=== PATIENT | male | born 1940 | race Caucasian/White ===

== ENCOUNTER 2019-05-06 09:09 | Inpatient (IN) | payer MEDICARE, BC ==
[~2019-05-06] VITALS: Ht 162.6 cm; Wt 85.2 kg
[~2019-05-06 09:09] MED LIST: HEPARIN SODIUM 5,000 UNIT in IV RINGERS,LACTATED 500ML 500 ML IRR ONE; HYDROmorphone 2 MG/ML VIAL IV PRN; LIDOCAINE 1% PF 2 ML VIAL. ID PRN; ONDANSETRON PF 4 MG/2 ML VIAL. IV PRN; PROCHLORPERAZINE 10 MG/2 ML VIAL. IV PRN; fentaNYL PF VIAL 100 MCG/2 ML VIAL IV PRN
[2019-05-06] MEDS ORDERED: SIMV80TA17 PO (09:48)
[2019-05-06] MEDS ORDERED: METF500T16 PO (09:48)
[2019-05-06] MEDS ORDERED: OMEP20CA16 PO (09:48)
[2019-05-06] MEDS ORDERED: ASPI325T8 PO (09:48)
[2019-05-06] MEDS ORDERED: MULT-245 PO (09:48)
[2019-05-06] MEDS ORDERED: METO25TA2 PO (09:48)
[2019-05-06] MEDS ORDERED: NIFE60TA41 PO (09:48)
[2019-05-06] MEDS ORDERED: CLOP75TA PO (09:48)
[2019-05-06] MEDS ORDERED: LOSA100T14 PO (09:48)
[2019-05-06] MEDS ORDERED: INSULIN LISPRO 100 UNIT/ML 3ML VIAL for OP,RR ONLY. SQ PRN (10:15)
[2019-05-06] MEDS: IV RINGERS,LACTATED 1000ML 1,000 ML IV SCH ×2 (10:16→15:10)
[2019-05-06 10:23] LABS: BASO # 0.1 x10^3/uL (0.0-0.2); BASO % 1 % (0-3); EOS # 0.2 x10^3/uL (0.0-0.7); EOS % 2 % (0-3); HEMATOCRIT 39.1 % (39.0-53.0); HEMOGLOBIN 13.2 g/dL (13.0-17.5); LYMPH # 2.3 x10^3/uL (1.0-4.8); LYMPH % 27 % (24-48); MEAN CORPUSCULAR HEMOGLOBIN 30 pg (25-35); MEAN CORPUSCULAR HGB CONC 34 g/dL (31-37); MEAN CORPUSCULAR VOLUME 88 fL (79-100); MONO # 0.6 x10^3/uL (0.0-1.1); MONO % 8 % (0-9); NEUT # 5.4 x10^3/uL (1.8-7.7); NEUT % 63 % (31-73); PLATELET COUNT 267 x10^3/uL (140-400); RED BLOOD COUNT 4.44 x10^6/uL (4.30-5.70); RED CELL DISTRIBUTION WIDTH 14.3 % (11.5-14.5); WHITE BLOOD COUNT 8.5 x10^3/uL (4.0-11.0)
[2019-05-06 11:04] LABS: CALCIUM 7.9 mg/dL (8.5-10.1); GFR 72.5; POTASSIUM 4.3 mmol/L (3.5-5.1)
[2019-05-06] MEDS ORDERED: PROTAMINE 50 MG/5 ML VIAL. IV ONE ×2 (11:35→14:13)
[2019-05-06] MEDS ORDERED: SURGICEL FIBRILLAR 1X2 EACH. ONE ×3 (11:35→14:29)
[2019-05-06] MEDS ORDERED: LIDOCAINE 1% Multi-Dose 20 ML VIAL. ONE ×2 (11:35→13:13)
[2019-05-06] MEDS ORDERED: MIDAZOLAM HCL/PF 2 MG/2 ML VIAL. ONE ×2 (12:08→12:41)
[2019-05-06] MEDS ORDERED: ROPIVacaine 0.5% PF 20 ML VIAL. ONE (12:08)
[2019-05-06] MEDS: IV NORMAL SALINE 1000ML BAG 1,000 ML IV SCH (12:44)
[2019-05-06] MEDS ORDERED: MORPHINE SULFATE 2 MG/ML VIAL. IV PRN (12:45)
[2019-05-06] MEDS ORDERED: 0.9 % SODIUM CHLORIDE 10 ML DISP.SYRIN. IV PRN (12:45)
[2019-05-06] MEDS ORDERED: hydrALAZINE 20 MG/ML VIAL. IVP PRN (12:45)
[2019-05-06] MEDS ORDERED: ONDANSETRON PF 4 MG/2 ML VIAL. IVP PRN (12:45)
[2019-05-06] MEDS ORDERED: HYDROcodone/APAP 5/325MG 1 TAB TABLET PO PRN ×2 (12:45)
[2019-05-06] MEDS ORDERED: LABETALOL 20 MG/4 ML DISP.SYRIN. IVP PRN (12:45)
[2019-05-06] MEDS ORDERED: HEPARIN for IV BOLUS 10,000 UNIT/10 ML VIAL. ONE (13:03)
[2019-05-06] MEDS ORDERED: fentaNYL PF VIAL 100 MCG/2 ML VIAL ONE ×3 (13:32→14:33)
[2019-05-06] MEDS ORDERED: ESMOLOL 100 MG/10 ML VIAL. IVP ONE (14:10)
[2019-05-06] MEDS ORDERED: METOPROLOL TARTRATE 5 MG/5 ML VIAL. IVP ONE (14:27)
--- NOTE | 2019-05-06 14:52 | PDOC ---
BRIEF OPERATIVE NOTE Date: May 06, 2019 Pre-Op Diagnosis Left carotid stenosis Post-Op Diagnosis same Procedure Performed left carotid endarterectomy Surgeon Dr. Laguna Tank Calibrator Karoline Pearson NP Anesthesia Type: Regional Blood Loss 50cc Specimens Obtained discarded Findings greater than 80% Complications none Operative Note see dictated note KAROLINE PEASRON APRN May 06, 2019 14:52
[2019-05-06] MEDS: LOSARTAN POTASSIUM 50 MG TABLET. PO SCH ×2 (15:00→16:45)
[2019-05-06] MEDS: METOPROLOL SUCC 24HR ER 25 MG TAB.ER.24H. PO SCH ×2 (15:00→16:44)
[2019-05-06] MEDS: MORPHINE SULFATE 2 MG/ML VIAL. IV PRN ×2 (15:11→15:48)
[2019-05-06 16:15] VITALS: BP 130/62
[2019-05-06] MEDS: PANTOPRAZOLE 40 MG TABLET.DR. PO SCH ×2 (16:30→16:46)
[2019-05-06] MEDS: ACETAMINOPHEN 325 MG TABLET. PO SCH ×2 (16:43→22:05)
[2019-05-06] MEDS: metFORMIN 500 MG TABLET PO SCH (16:45)
[2019-05-06] MEDS ORDERED: LORazepam 0.5 MG TABLET PO PRN (17:45)
[2019-05-06] MEDS ORDERED: DOCUSATE SODIUM 100 MG CAPSULE. PO PRN (17:45)
[2019-05-06] MEDS ORDERED: ALBUTEROL SULFATE 2.5 MG/3 ML NEBU. NEB PRN (17:45)
[2019-05-06] MEDS ORDERED: guaiFENesin ORAL 200 MG/10 ML LIQUID. PO PRN (17:45)
[2019-05-06] MEDS ORDERED: ONDANSETRON PF 4 MG/2 ML VIAL. IV PRN (17:45)
[2019-05-06] MEDS ORDERED: ACETAMINOPHEN 325 MG TABLET. PO PRN (17:45)
[2019-05-06 19:09] VITALS: BP 113/56
--- NOTE | 2019-05-06 19:35 | OP ---
DATE OF SURGERY: 05/06/2019 SURGEON: Brigid Laguna MD TOUR MANAGER: Nicolle Black, nurse practitioner. PREOPERATIVE DIAGNOSIS: Severe greater than 70% stenosis of the left internal carotid artery, which is asymptomatic. POSTOPERATIVE DIAGNOSIS: Severe greater than 80% stenosis of the left internal carotid artery at the bulb and proximal segment secondary to severe atherosclerotic disease and chronic thrombus. OPERATION PERFORMED: Left carotid endarterectomy using the eversion endarterectomy technique. ANESTHESIA USED: Monitored sedation with a left neck cervical block. INDICATIONS: The patient is a 78-year-old male who has been found to have severe left internal carotid artery stenosis by duplex scan done at the [facility]. He has been asymptomatic with no stroke symptoms and no strokes in the past. He was seen in the office by Dr. Irene and recommendations were made for a left carotid endarterectomy to help prevent future strokes. Informed consent was obtained including the risks of bleeding, infection, intraoperative or postoperative stroke, nerve damage, and possible recurrent carotid arterial disease in the future. BLOOD LOSS: 50 mL. DETAILS OF THE OPERATION: The patient was brought to the operating room and placed on table in supine position. He received monitored sedation in the left neck cervical block by Anesthesia. We positioned him in the normal fashion to expose his left chest and neck. His left chest and neck were prepped and draped by normal sterile fashion. I tested the skin with pickups prior to starting, and he did have some pain when squeezing his skin. Therefore, I supplemented throughout the case with 1% lidocaine. We made a longitudinal incision in the left neck just anterior to the sternocleidomastoid muscle. The subcutaneous tissue was dissected down with electrocautery and we divided the platysma muscle with electrocautery. We continued dissection down to the sternocleidomastoid muscle, which was mobilized laterally down to the area of the jugular vein. The jugular vein was dissected out medially and medial to the vessel we identified the common carotid artery. The common carotid artery was soft. We heparinized with 7000 units of heparin. We dissected out the proximal common carotid artery, encircled it with an umbilical tape and loose Rumel tourniquet. We continued dissection proximally up into the carotid bulb. He did have a very high bifurcation. There was a crossing nerve, which was likely a large and cervicalis nerve, which we did preserve throughout the case. We dissected out the carotid bulb and external carotid artery. We circled the external carotid artery with a vessel loop. We then test clamped the patient. We clamped the proximal common carotid artery and external carotid artery. He remained neurologically intact, speaking, answering questions, and squeezing his right hand throughout the test clamp time. We then dissected the internal carotid artery proximal within the neck, we identified the hypoglossal nerve and preserved it throughout the case. The carotid bulb and proximal internal carotid artery were very hard and calcified, but the mid internal carotid artery and distal segment were very soft. We dissected this area out circumferentially and placed a spring bulldog across the distal internal carotid artery. We had the vessel completely dissected out, we ensured that he was neurologically intact. We then transected the proximal internal carotid artery at the bulb in an angled fashion spatulating the medial aspect of the internal carotid artery and the anterior surface of the common carotid artery. There was dense plaque and old thrombus within the lumen of the bulb and internal carotid artery, which was at least 80% stenotic. We performed an eversion endarterectomy of the internal carotid artery, removing the plaque up to healthy distal segment with no residual significant plaque remaining. All pieces of debris were removed off the endarterectomized vessel. We irrigated with copious amounts of heparinized saline. We then performed an eversion endarterectomy of the common carotid artery, starting with the external carotid artery, removing dense plaque and then everting to the proximal common carotid artery above the clamp endarterectomizing the vessel, we transected it proximally and the plaque. There was no residual significant plaque in the common carotid artery, it was widely patent. We irrigated with heparinized saline. We ensured all pieces of debris were removed off the endarterectomized open carotid artery. We then performed an anastomosis between the internal carotid artery and the common carotid artery with running 6-0 Prolene suture. Prior to finishing this anastomosis, we backbled the internal carotid artery and reclamped. We removed the clamp off the common carotid artery and there was good pulsatile inflow through the vessel and there was good backbleeding from the external carotid artery. We irrigated the open vessel with copious amounts of heparinized saline and then finished our anastomosis. We first restored blood flow to the external carotid artery and then we restored after several heartbeats to the internal carotid artery. There was a strong pulse within the internal carotid artery and there was strong dopplerable flow within the distal internal carotid artery and external carotid artery. We irrigated with copious amounts of antibiotic solution. There was an area of bleeding on the anterior surface of the anastomosis and the posterior surface of the anastomosis, which was repaired with 7-0 Prolene suture. The entire wound bed was very oozy with blood, likely from his aspirin and Plavix; therefore, we did end up reversing with a total of 30 mg of protamine. After the protamine exploring the wound using clips and electrocautery and Fibrillar at the end it was very dry with no significant bleeding. Fibrillar was left around the vessels. A PAUL flat drain was left in the wound through a separate lower neck incision. When it was nice and dry, we closed the platysma and subcutaneous tissue level with running 2-0 Vicryl suture and we closed the skin with running 4-0 Vicryl subcuticular suture. Dermabond was left on the incision and a drain sponge around the drain. He tolerated the surgery with no immediate complications. He was speaking, answering questions, and squeezing his right hand at the end of the case. Nicolle Black was scrubbed throughout the entire case helping with the exposure of the carotid artery, endarterectomy, and closure. BRIGID LAGUNA MD DR: ELIZABETH/adele JOB#: [id number] / [id number]
[2019-05-06] MEDS ORDERED: SIMVASTATIN 40 MG TABLET. PO SCH (21:00)
--- NOTE | 2019-05-06 23:29 | PDOC1 ---
History and Physical Date of Admission Date of Admission 05/06/2019 Identification/Chief Complaint Chief Complaint I had surgery History of Present Illness History of Present Illness Patient is a 78 year old male with past medical history of hypertension, dyslpidemia who came to the hospital today for left carotid endarterectomy, The patient at the time of my note is still lying in bed in no apparent distress, there are surgical dressings in place, he denies pain at the time of my note. Patient denies chest pain isidro palpitations no stroke like symtpoms no excess weathers at the site of his surgery, he denies headache no chest pain or palpitaiton, Plan of care discussed in detail and no questions were voiced during my encounter. Past Medical History Cardiovascular: CAD, HTN GI: GERD Endocrine: Diabetes Current Medications Current Medications Current Medications Medications (Trade) Dose Ordered Sig/Adolfo Start Time Stop Time Status Last Admin Dose Admin Acetaminophen (Tylenol) 650 mg PRN Q4HRS PRN 05/06/19 17:45 Acetaminophen/ Hydrocodone Bitart (Lortab 5/325) 2 tab PRN Q4HRS PRN 05/06/19 12:45 Albuterol Sulfate (Ventolin Neb Soln) 2.5 mg PRN Q4HRS PRN 05/06/19 17:45 Aspirin (Kassidy Aspirin) 325 mg DAILY 05/07/19 09:00 Cefazolin Sodium 1 gm/Sodium Chloride 500 ml @ 500 mls/hr 1X ONCE 05/06/19 06:00 05/06/19 06:59 DC 05/06/19 13:08 Cefazolin Sodium/ Dextrose 50 ml @ 100 mls/hr 1X PREOP PRN 05/06/19 06:00 05/06/19 18:00 DC 05/06/19 12:50 100 MLS/HR Cellulose (Surgicel Fibrillar 1x2) 1 each STK-MED ONCE 05/06/19 14:29 05/06/19 14:30 DC 05/06/19 14:30 1 EACH Clopidogrel Bisulfate (Plavix) 75 mg DAILY 05/07/19 09:00 Docusate Sodium (Colace) 100 mg PRN BID PRN 05/06/19 17:45 Esmolol HCl (Brevibloc) 100 mg STK-MED ONCE 05/06/19 14:10 05/06/19 14:10 DC Fentanyl Citrate (Fentanyl 2ml Vial) 100 mcg STK-MED ONCE 05/06/19 14:33 05/06/19 14:33 DC Guaifenesin (Robitussin) 200 mg PRN Q4HRS PRN 05/06/19 17:45 Heparin Sodium (Porcine) (Heparin Sodium) 10,000 unit STK-MED ONCE 05/06/19 13:03 05/06/19 13:03 DC Heparin Sodium (Porcine) 5000 unit/Ringer's Solution 505 ml @ 505 mls/hr 1X ONCE 05/06/19 06:00 05/06/19 06:59 DC 05/06/19 13:08 Hydralazine HCl (Apresoline Inj) 5 mg PRN Q2HRS PRN 05/06/19 12:45 Hydromorphone HCl (Dilaudid) 0.5 mg PRN Q10MIN PRN 05/06/19 07:00 05/06/19 20:00 DC Insulin Human Lispro (HumaLOG VIAL for OP,RR ONLY) 0-10 units PRN Q1HR PRN 05/06/19 10:15 05/06/19 17:06 DC 05/06/19 10:28 2 UNIT Labetalol HCl (Normodyne Iv Push) 10 mg PRN Q2HR PRN 05/06/19 12:45 Lidocaine HCl (Lidocaine 1% 20ml Vial) 20 ml STK-MED ONCE 05/06/19 13:13 05/06/19 13:13 DC 05/06/19 13:08 2 ML Lidocaine HCl (Xylocaine-Mpf 1% 2ml Vial) 2 ml PRN 1X PRN 05/06/19 07:00 05/06/19 20:00 DC Lorazepam (Ativan) 0.5 mg PRN Q4HRS PRN 05/06/19 17:45 Losartan Potassium (Cozaar) 100 mg DAILY 05/06/19 15:00 Metformin HCl (Glucophage) 500 mg BIDWMEALS 05/06/19 17:00 05/06/19 16:45 500 MG Metoprolol Succinate (Toprol Xl) 50 mg DAILY 05/06/19 15:00 Metoprolol Tartrate (Lopressor Vial) 5 mg STK-MED ONCE 05/06/19 14:27 05/06/19 14:27 DC Midazolam HCl (Versed) 2 mg STK-MED ONCE 05/06/19 12:41 05/06/19 12:41 DC Morphine Sulfate (Morphine Sulfate) 2 mg PRN Q1HR PRN 05/06/19 12:45 Multivitamins (Thera M Plus) 1 tab DAILY 05/07/19 09:00 Nifedipine (Procardia Xl) 60 mg DAILY 05/06/19 16:00 Ondansetron HCl (Zofran) 4 mg PRN Q4HRS PRN 05/06/19 17:45 Pantoprazole Sodium (Protonix) 40 mg DAILYAC 05/06/19 16:30 Prochlorperazine Edisylate (Compazine) 5 mg PACU PRN PRN 05/06/19 07:00 05/06/19 20:00 DC 05/06/19 15:47 5 MG Protamine Sulfate (Protamine) 50 mg STK-MED ONCE 05/06/19 14:13 05/06/19 14:14 DC Ringer's Solution 1,000 ml @ 30 mls/hr Q24H 05/06/19 07:00 05/06/19 18:59 DC 05/06/19 15:10 30 MLS/HR Ropivacaine (Naropin 0.5%) 20 ml STK-MED ONCE 05/06/19 12:08 05/06/19 12:08 DC Simvastatin (Zocor) 80 mg QHS 05/06/19 21:00 05/06/19 22:05 80 MG Sodium Chloride 1,000 ml @ 100 mls/hr Q10H 05/06/19 12:44 Sodium Chloride (Normal Saline Flush) 3 ml QSHIFT PRN 05/06/19 12:45 Allergies Allergies Allergies Coded Allergies Type Severity Reaction Last Updated Verified No Known Drug Allergies 05/06/19 No ROS Review of System CONSTITUTIONAL: No fever or chills EYES: No recent changes SKIN: No rash or itching CARDIOVASCULAR: No chest pain, syncope, palpitations, or edema RESPIRATORY: No SOB or cough GASTROINTESTINAL: No nausea, vomiting or abdominal pain NEUROLOGICAL: No headaches or weakness ENDOCRINE: No cold or heat intolerance GENITOURINARY: No urgency or frequency of urination MUSCULOSKELETAL: No back pain or joint pain LYMPHATICS: No enlarged lymph nodes PSYCHIATRIC: No anxiety or depression Physical Exam Physical Exam GEN.: No apparent distress. Alert and oriented. HEENT: Head is normocephalic, atraumatic NECK: Supple. LUNGS: Clear to auscultation. HEART: RRR, S1, S2 present. Peripheral pulses intact ABDOMEN: Soft, nontender. Positive bowel sounds. EXTREMITIES: Without any cyanosis. NEUROLOGIC: Normal speech, normal tone PSYCHIATRIC: Normal affect, normal mood. SKIN: No ulcerations Vitals Vitals Vital Signs Date Time Temp Pulse Resp B/P (MAP) Pulse Ox O2 Delivery O2 Flow Rate FiO2 05/06/19 21:47 97 Nasal Cannula 2.0 05/06/19 19:09 98.0 72 16 113/56 (75) 98.0 Labs Labs Laboratory Tests Test 05/06/19 10:05 05/06/19 10:12 05/06/19 10:26 05/06/19 11:52 White Blood Count 8.5 x10^3/uL (4.0-11.0) Red Blood Count 4.44 x10^6/uL (4.30-5.70) Hemoglobin 13.2 g/dL (13.0-17.5) Hematocrit 39.1 % (39.0-53.0) Mean Corpuscular Volume 88 fL (79-100) Mean Corpuscular Hemoglobin 30 pg (25-35) Mean Corpuscular Hemoglobin Concent 34 g/dL (31-37) Red Cell Distribution Width 14.3 % (11.5-14.5) Platelet Count 267 x10^3/uL (140-400) Neutrophils (%) (Auto) 63 % (31-73) Lymphocytes (%) (Auto) 27 % (24-48) Monocytes (%) (Auto) 8 % (0-9) Eosinophils (%) (Auto) 2 % (0-3) Basophils (%) (Auto) 1 % (0-3) Neutrophils # (Auto) 5.4 x10^3/uL (1.8-7.7) Lymphocytes # (Auto) 2.3 x10^3/uL (1.0-4.8) Monocytes # (Auto) 0.6 x10^3/uL (0.0-1.1) Eosinophils # (Auto) 0.2 x10^3/uL (0.0-0.7) Basophils # (Auto) 0.1 x10^3/uL (0.0-0.2) Glucose (Fingerstick) 108 mg/dL (70-99) 74 mg/dL (70-99) Sodium Level 141 mmol/L (136-145) Potassium Level 4.3 mmol/L (3.5-5.1) Chloride Level 108 mmol/L (98-107) Carbon Dioxide Level 22 mmol/L (21-32) Anion Gap 11 (6-14) Blood Urea Nitrogen 16 mg/dL (8-26) Creatinine 1.0 mg/dL (0.7-1.3) Estimated GFR (Cockcroft-Gault) 72.5 Glucose Level 98 mg/dL (70-99) Calcium Level 7.9 mg/dL (8.5-10.1) Test 05/06/19 14:58 05/06/19 16:44 05/06/19 21:09 Glucose (Fingerstick) 122 mg/dL (70-99) 161 mg/dL (70-99) 182 mg/dL (70-99) Laboratory Tests Test 05/06/19 10:05 05/06/19 10:12 05/06/19 10:26 05/06/19 11:52 White Blood Count 8.5 x10^3/uL (4.0-11.0) Red Blood Count 4.44 x10^6/uL (4.30-5.70) Hemoglobin 13.2 g/dL (13.0-17.5) Hematocrit 39.1 % (39.0-53.0) Mean Corpuscular Volume 88 fL (79-100) Mean Corpuscular Hemoglobin 30 pg (25-35) Mean Corpuscular Hemoglobin Concent 34 g/dL (31-37) Red Cell Distribution Width 14.3 % (11.5-14.5) Platelet Count 267 x10^3/uL (140-400) Neutrophils (%) (Auto) 63 % (31-73) Lymphocytes (%) (Auto) 27 % (24-48) Monocytes (%) (Auto) 8 % (0-9) Eosinophils (%) (Auto) 2 % (0-3) Basophils (%) (Auto) 1 % (0-3) Neutrophils # (Auto) 5.4 x10^3/uL (1.8-7.7) Lymphocytes # (Auto) 2.3 x10^3/uL (1.0-4.8) Monocytes # (Auto) 0.6 x10^3/uL (0.0-1.1) Eosinophils # (Auto) 0.2 x10^3/uL (0.0-0.7) Basophils # (Auto) 0.1 x10^3/uL (0.0-0.2) Glucose (Fingerstick) 108 mg/dL (70-99) 74 mg/dL (70-99) Sodium Level 141 mmol/L (136-145) Potassium Level 4.3 mmol/L (3.5-5.1) Chloride Level 108 mmol/L (98-107) Carbon Dioxide Level 22 mmol/L (21-32) Anion Gap 11 (6-14) Blood Urea Nitrogen 16 mg/dL (8-26) Creatinine 1.0 mg/dL (0.7-1.3) Estimated GFR (Cockcroft-Gault) 72.5 Glucose Level 98 mg/dL (70-99) Calcium Level 7.9 mg/dL (8.5-10.1) Test 05/06/19 14:58 05/06/19 16:44 05/06/19 21:09 Glucose (Fingerstick) 122 mg/dL (70-99) 161 mg/dL (70-99) 182 mg/dL (70-99) VTE Prophylaxis Ordered VTE Prophylaxis Devices: Yes VTE Pharmacological Prophylaxi: No Assessment/Plan Assessment/Plan Status post carotid endarterectomy Dyslipidemia History of CAD DM type 2 essential hypertension Plan: resume home meds follow recommendations from vascular further recommendations based on clinical course. pain management DVT prophylaxis: SCD DELIO BEARD MD May 06, 2019 23:29
[2019-05-06 23:42] VITALS: BP 106/51
[2019-05-07] MEDS: IV NORMAL SALINE 1000ML BAG 1,000 ML IV SCH ×2 (03:00→08:28)
[2019-05-07 03:15] VITALS: BP 142/66
[2019-05-07] MEDS: ACETAMINOPHEN 325 MG TABLET. PO SCH (05:31)
[2019-05-07] MEDS: PANTOPRAZOLE 40 MG TABLET.DR. PO SCH ×2 (05:32→08:26)
[2019-05-07 07:00] VITALS: BP 148/67
[2019-05-07] MEDS: METOPROLOL SUCC 24HR ER 25 MG TAB.ER.24H. PO SCH (08:26)
[2019-05-07] MEDS: LOSARTAN POTASSIUM 50 MG TABLET. PO SCH (08:28)
[2019-05-07] MEDS: metFORMIN 500 MG TABLET PO SCH (08:28)
--- NOTE | 2019-05-07 08:30 | PDOC ---
Provider Note Provider Note Vascular S: Minimal complaints of incisional pain. Complains of diffuse headache. States it is improving. O: Awake and alert VSS, afebrile Left neck incision dry and intact, minimal drainage in drain, drain removed. Mild ecchymosis, no swelling or hematoma. Trachea midline Speech clear, no facial asymmetry, paint booth operator equal, moves all extremities equally. A/P: Left carotid stenosis DM HTN POD #1 Left carotid endarterectomy Progressing as expected. Ok to discharge home if he can ambulate in halls and O2 sat >90% on RA. Discharge instructions given to patient. Discussed with HEATHER. KAROLINE PEARSON APRN May 07, 2019 08:30
--- NOTE | 2019-05-07 08:38 | DISCH ---
KAROLINE PEARSON CIVIL ENGINEERING PROFESSIONAL 05/07/19 0838: DISCHARGE INSTRUCTIONS Condition on Discharge Condition on Discharge: Stable Activity After Discharge Activity Instructions for Disc: Activity as tolerated Lifting Instructions after Dis: No heavy lifting Driving Instructions after Dis: No driving for 2 weeks (may drive when have full range of motion in neck) Diet after Discharge Diet after Discharge: Cardiac, Diabetic No Calorie Level Wound Incision Care Wound/Incision Care: Ice to area for comfort, Change dressing Other wound/incision instructi: may shower starting 05/08/2019, cover drain site with bandaid for 3-4 days Checks after Discharge Checks after discharge: Check blood press - daily, Check blood sugar, ac/hs Contacting the DRJorge after DC Call your doctor for: Concerns you may have Follow-Up Follow up with: Dr. Laguna in 2-3 weeks [phone] DELIO BEARD MD 05/07/19 1056: KAROLINE PEARSON APRN May 07, 2019 08:38 DELIO BEARD MD May 07, 2019 10:56
[2019-05-07] MEDS ORDERED: ASPIRIN 325 MG TABLET PO SCH (09:00)
[2019-05-07] MEDS ORDERED: CLOPIDOGREL BISULFATE 75 MG TABLET PO SCH (09:00)
[2019-05-07] MEDS ORDERED: MULTIVITAMIN with MINERAL TABLET. PO SCH (09:00)
--- NOTE | 2019-05-07 10:59 | PDOC3 ---
Discharge Summary Visit Information Date of Admission: May 06, 2019 Date of Discharge: May 07, 2019 Admitting Diagnosis Comment: Status post carotid endarterectomy Dyslipidemia History of CAD DM type 2 essential hypertension Final Diagnosis Status post carotid endarterectomy Dyslipidemia History of CAD DM type 2 essential hypertension well controlled Brief Hospital Course Allergies Allergies Coded Allergies Type Severity Reaction Last Updated Verified No Known Drug Allergies 05/06/19 No Vital Signs Vital Signs Date Time Temp Pulse Resp B/P (MAP) Pulse Ox O2 Delivery O2 Flow Rate FiO2 05/07/19 08:28 98 148/67 05/07/19 08:00 Room Air 1.0 05/07/19 07:00 97.7 16 97 97.7 Lab Results Laboratory Tests Test 05/06/19 10:05 05/06/19 10:12 05/06/19 10:26 05/06/19 11:52 White Blood Count 8.5 x10^3/uL (4.0-11.0) Red Blood Count 4.44 x10^6/uL (4.30-5.70) Hemoglobin 13.2 g/dL (13.0-17.5) Hematocrit 39.1 % (39.0-53.0) Mean Corpuscular Volume 88 fL (79-100) Mean Corpuscular Hemoglobin 30 pg (25-35) Mean Corpuscular Hemoglobin Concent 34 g/dL (31-37) Red Cell Distribution Width 14.3 % (11.5-14.5) Platelet Count 267 x10^3/uL (140-400) Neutrophils (%) (Auto) 63 % (31-73) Lymphocytes (%) (Auto) 27 % (24-48) Monocytes (%) (Auto) 8 % (0-9) Eosinophils (%) (Auto) 2 % (0-3) Basophils (%) (Auto) 1 % (0-3) Neutrophils # (Auto) 5.4 x10^3/uL (1.8-7.7) Lymphocytes # (Auto) 2.3 x10^3/uL (1.0-4.8) Monocytes # (Auto) 0.6 x10^3/uL (0.0-1.1) Eosinophils # (Auto) 0.2 x10^3/uL (0.0-0.7) Basophils # (Auto) 0.1 x10^3/uL (0.0-0.2) Glucose (Fingerstick) 108 mg/dL (70-99) 74 mg/dL (70-99) Sodium Level 141 mmol/L (136-145) Potassium Level 4.3 mmol/L (3.5-5.1) Chloride Level 108 mmol/L (98-107) Carbon Dioxide Level 22 mmol/L (21-32) Anion Gap 11 (6-14) Blood Urea Nitrogen 16 mg/dL (8-26) Creatinine 1.0 mg/dL (0.7-1.3) Estimated GFR (Cockcroft-Gault) 72.5 Glucose Level 98 mg/dL (70-99) Calcium Level 7.9 mg/dL (8.5-10.1) Test 05/06/19 14:58 05/06/19 16:44 05/06/19 21:09 05/07/19 08:13 Glucose (Fingerstick) 122 mg/dL (70-99) 161 mg/dL (70-99) 182 mg/dL (70-99) 130 mg/dL (70-99) Laboratory Tests Test 05/06/19 11:52 05/06/19 14:58 05/06/19 16:44 05/06/19 21:09 Glucose (Fingerstick) 74 mg/dL (70-99) 122 mg/dL (70-99) 161 mg/dL (70-99) 182 mg/dL (70-99) Test 05/07/19 08:13 Glucose (Fingerstick) 130 mg/dL (70-99) Brief Hospital Course Mr. Guerrier is a 78 old male who underwent left carotid endarterectomy, he tolerated his procedure well and was deemed appropriate for discharge from the vascular stand point of view. signs and symptoms of alarm were discussed dand when to sek medical attention, he will follow up with Dr CALDWELL in 2 to 3 weeks. Patient in good spirits to be discharged. all concerns addressed to the best of my abilities. Assessment Assessment lungs clear to ausculation no abnormal respiratory sounds cvs s1s2 rr no murmurs Discharge Information Condition at Discharge: Improved Follow Up: Weeks Disposition/Orders: D/C to Home Scheduled Aspirin (Aspirin) 325 Mg Tablet, 1 TAB PO DAILY for anticoag, #30 Ref 5 (Reported) Entered as Reported by: Elenita Ramirez on 05/06/19947 Last Taken: Unknown Dose on 05/06/19429 Last Action: Continued on 05/06/191243 by KAROLINE PEARSON Clopidogrel Bisulfate (Clopidogrel) 75 Mg Tablet, 1 TAB PO DAILY for anticoag, #90 Ref 1 (Reported) Entered as Reported by: Elenita Ramirez on 05/06/19947 Last Taken: Unknown Dose on 05/06/19429 Last Action: Continued on 05/06/191243 by KAROLINE PEARSON Losartan Potassium (Losartan Potassium) 100 Mg Tablet, 100 MG PO DAILY for HYPERTENSION, (Reported) Entered as Reported by: Elenita Ramirez on 05/06/19947 Last Taken: Unknown Dose on 05/06/19429 Last Action: Converted on 05/06/191243 by KAROLINE PEARSON Metformin Hcl (Metformin Hcl) 500 Mg Tablet, 500 MG PO BIDWMEALS for ANTI- DIABETIC, Ref 0 (Reported) Entered as Reported by: Elenita Ramirez on 05/06/19947 Last Taken: Unknown Dose on 05/05/19 Last Action: Continued on 05/06/191243 by KAROLINE PEARSON Metoprolol Succinate (Toprol Xl) 25 Mg Tab.er.24h, 50 MG PO DAILY for FOR HYPERTENSION, #30 Ref 0 (Reported) Entered as Reported by: Elenita Ramirez on 05/06/19947 Last Taken: Unknown Dose on 05/06/19429 Last Action: Continued on 05/06/191243 by KAROLINE PEARSON Multivitamin (Multi Vitamin Daily) 1 Each Tablet, 1 TAB PO DAILY for supplement for 30 Days, #30 Ref 0 (Reported) Entered as Reported by: Elenita Ramirez on 05/06/19947 Last Action: Converted on 05/06/191243 by KAROLINE PEARSON Nifedipine (Adalat Cc) 60 Mg Tablet.er, 1 TAB PO DAILY for htn for 30 Days, #30 Ref 0 (Reported) Entered as Reported by: Elenita Ramirez on 05/06/19947 Last Taken: Unknown Dose on 05/06/19429 Last Action: Converted on 05/06/191243 by KAROLINE PEARSON Omeprazole (Omeprazole) 20 Mg Capsule.dr, 1 CAP PO DAILY for gerd, #30 Ref 5 (Reported) Entered as Reported by: Elenita Ramirez on 05/06/1947 Last Taken: Unknown Dose on 05/06/19 0430 Last Action: Converted on 05/06/191243 by KAROLINE PEARSON Simvastatin (Simvastatin) 80 Mg Tablet, 1 TAB PO QHS for high cholesterol for 30 Days, #30 Ref 0 (Reported) Entered as Reported by: Elenita Ramirez on 05/06/19947 Last Taken: Unknown Dose on 05/05/19 Last Action: Converted on 05/06/191243 by DELIO WEBER MD May 07, 2019 10:59
[2019-05-07 11:00] VITALS: BP 154/68
--- NOTE | 2019-05-07 12:31 | NUR ---
Discharge Note: KENNY SCOTT Discharge instructions and discharge home medications reviewed with Patient and a copy given. All questions have been answered and understanding verbalized. The following instructions and handouts were given: Endarterectomy care after Discontinued IV lines Patient discharged to home with self care via family member
== END 2019-05-07 11:55 | disposition home or self-care (01) | DRG 39 ==
LOC: OPSVCIP 09:09 → 2 NORTH 16:25
PROVIDERS: ADMIT Internal Medicine; ATTEND Internal Medicine
PROC: 03CJ0ZZ Extirpation of Matter from Left Common Carotid Artery, Open Approach (ICD-10-PCS; principal; 2019-05-07)
PROC: 03CL0ZZ Extirpation of Matter from Left Internal Carotid Artery, Open Approach (ICD-10-PCS; 2019-05-07)
PROC: 03CN0ZZ Extirpation of Matter from Left External Carotid Artery, Open Approach (ICD-10-PCS; 2019-05-07)
DX: I65.22 Occlusion and stenosis of left carotid artery (principal); E11.9 Type 2 diabetes mellitus without complications; E78.5 Hyperlipidemia, unspecified; I10 Essential (primary) hypertension; I25.10 Atherosclerotic heart disease of native coronary artery without angina pectoris; K21.9 Gastro-esophageal reflux disease without esophagitis
CPT/HCPCS: 36415; 80048; 82962; 85025; J0690; J0696; J0780; J1644; J1815; J2250; J2270; J2795; J3010; J3490; J7030; J7040; J7120; G0378